=== PATIENT | female | born 1950 | race Caucasian/White ===

== ENCOUNTER → 2018-10-06 | Outpatient (CLI) | payer OTHER ==
[~2018-10-06] MED LIST: ALBU18HF INH; ALBU8.5H8 INH; BUDE8.43 INH; CETI10TA24 PO; DUPI300S INJ; FLUT1BLS INH; GUAI-106 PO; HYDR-3059 PO; MELA10TA PO; MONT10TA6 PO; PRED10TA PO
== END | disposition home or self-care (01) ==
LOC: STAR 14:56
PROVIDERS: ATTEND Otolaryngology
DX: Z01.818 Encounter for other preprocedural examination (principal); J32.4 Chronic pansinusitis; J34.2 Deviated nasal septum
CPT/HCPCS: 93005

== ENCOUNTER 2018-10-17 05:39 | Observation (INO) | payer OTHER ==
[~2018-10-17] VITALS: Ht 162.6 cm; Wt 95.5 kg
[2018-10-17] MEDS ORDERED: LACTATED RINGERS 1,000 ML IV SCH (06:22)
[2018-10-17] MEDS ORDERED: LISI-167 PO (06:25)
[2018-10-17] MEDS ORDERED: FLUORESCEIN SODIUM 500 MG/5 ML ONE (07:05)
[2018-10-17] MEDS ORDERED: OXYMETAZOLINE NASAL SPRAY 0.05%, 15ML ONE ×2 (07:05→11:44)
[2018-10-17] MEDS ORDERED: EPINEPHRINE TOPICAL SOLN 1 MG/ML, 30ML ONE (07:05)
[2018-10-17] MEDS ORDERED: BACITRACIN OINT 500U/GM, 15 GM ONE (07:05)
[2018-10-17] MEDS ORDERED: LIDOCAINE 1%-EPI 1:100K, 20ML ONE (07:05)
[2018-10-17] MEDS ORDERED: FENTANYL PF 250 MCG/5ML ONE (07:10)
[2018-10-17] MEDS ORDERED: MIDAZOLAM 1 MG/ML, 2ML ONE (07:10)
[2018-10-17] MEDS ORDERED: PROPOFOL 10 MG/ML, 20ML ONE ×2 (07:10)
[2018-10-17] MEDS ORDERED: SUCCINYLCHOLINE 20 MG/ML, 10ML ONE (07:14)
[2018-10-17] MEDS ORDERED: EPHEDRINE 50 MG/ML, 1ML ONE (07:18)
[2018-10-17] MEDS ORDERED: EPINEPHRINE 1 MG/ML, 1ML ONE (07:19)
[2018-10-17] MEDS ORDERED: HYDROCORTISONE 100 MG INJ. ONE (07:22)
[2018-10-17] MEDS ORDERED: CEFAZOLIN 1,000 MG ONE (07:41)
[2018-10-17] MEDS ORDERED: OXYcodone 5 MG/5 ML ORAL.SOL UDC PO PRN (08:00)
[2018-10-17] MEDS ORDERED: PROMETHAZINE 25 MG/ML, 1ML IV PRN (08:00)
[2018-10-17] MEDS ORDERED: ACETAMINOPHEN 325 MG TABLET PO PRN (08:00)
[2018-10-17] MEDS ORDERED: ONDANSETRON 2MG/ML, 2ML ONE (08:19)
[2018-10-17] MEDS ORDERED: PHENYLEPHRINE 10 MG/ML ONE (08:19)
[2018-10-17] MEDS ORDERED: LABETALOL 5 MG/ML SYRINGE IV ONE (09:30)
[2018-10-17] MEDS ORDERED: FENTANYL PF 100 MCG/2ML ONE ×2 (10:18→12:00)
[2018-10-17] MEDS ORDERED: OXYcodone 5 MG/5 ML ORAL.SOL UDC ONE (10:19)
[2018-10-17] MEDS ORDERED: ACETAMINOPHEN 650 MG/20.3 ML UDC ONE (10:19)
[2018-10-17] MEDS: FENTANYL PF 100 MCG/2ML IV PRN ×6 (10:20→14:00)
[2018-10-17] MEDS ORDERED: ALBUTEROL SULFATE 2.5 MG/3 ML ONE (10:34)
[2018-10-17] MEDS ORDERED: RACEPINEPHRINE INH 2.25%, 0.5ML ONE (10:34)
[2018-10-17] MEDS: LABETALOL 5MG/ML, 20ML IV PRN ×4 (10:36→12:20)
[2018-10-17] MEDS ORDERED: ALBUTEROL SULFATE 2.5 MG/3 ML NPPB ONE (11:00)
[2018-10-17] MEDS ORDERED: RACEPINEPHRINE INH 2.25%, 0.5ML NPPB ONE (11:00)
[2018-10-17] MEDS ORDERED: hydrALAzine 20 MG/ML, 1ML ONE (11:44)
[2018-10-17] MEDS: hydrALAzine 20 MG/ML, 1ML IV PRN ×2 (11:45→12:20)
[2018-10-17] MEDS ORDERED: PROMETHAZINE 25 MG/ML, 1ML ONE (11:50)
[2018-10-17 14:56] VITALS: BP 116/69
[2018-10-17] MEDS ORDERED: morphine SULFATE 10 MG/ML, 1ML IVPush PRN (15:00)
[2018-10-17] MEDS: LACTATED RINGERS 1,000 ML IV SCH (15:37)
[2018-10-17] MEDS: AMPICILLIN/SULBACTAM 3 GM in SODIUM CHLORIDE 0.9% 100 ML IV SCH ×2 (15:55→21:56)
[2018-10-17] MEDS: HYDROcodone/APAP 5/325 TABLET PO PRN ×2 (16:53→21:57)
[2018-10-17 20:07] VITALS: BP 113/72
[2018-10-18 00:17] VITALS: BP 138/72
[2018-10-18] MEDS: LACTATED RINGERS 1,000 ML IV SCH (00:57)
[2018-10-18] MEDS: AMPICILLIN/SULBACTAM 3 GM in SODIUM CHLORIDE 0.9% 100 ML IV SCH ×2 (04:10→10:07)
[2018-10-18 04:20] VITALS: BP 125/73
[2018-10-18] MEDS: HYDROcodone/APAP 5/325 TABLET PO PRN ×2 (06:01→11:58)
[2018-10-18 06:19] VITALS: BP 132/79
[2018-10-18] MEDS ORDERED: AMOX1TAB64 PO (12:55)
== END 2018-10-18 13:20 | disposition home or self-care (01) ==
LOC: OUT 05:39 → 4NOR 14:50 → OUT 21:33 → 4NOR 21:34 → DCLOUNGE 10-18 13:02
PROVIDERS: ADMIT Otolaryngology; ATTEND Otolaryngology
DX: J34.2 Deviated nasal septum (principal); J32.9 Chronic sinusitis, unspecified; J45.909 Unspecified asthma, uncomplicated; M85.80 Other specified disorders of bone density and structure, unspecified site; Z79.52 Long term (current) use of systemic steroids
CPT/HCPCS: 30520; 30999; 31255; 31287; 88304; 88311; 88313; 94640; 96365; 96366; G0378; J0171; J0295; J0330; J0360; J0690; J1720; J2250; J2370; J2405; J2550; J2704; J3010; J3490; J7120